=== PATIENT | male | born 1995 | race Caucasian/White ===

== ENCOUNTER 2021-10-25 14:13 | Emergency (ER) | payer BC, SELFPAY ==
--- NOTE | 2021-10-25 14:28 | ED.SKABFB ---
HPI - Skin/Abscess/Foreign Bdy General Chief complaint: Skin/Abscess/Foreign Body Stated complaint: RASH Time Seen by Provider: 10/25/21 14:50 Source: patient Mode of arrival: ambulatory Limitations: no limitations History of Present Illness HPI narrative: Andres is a 25-year-old male patient presenting to the clinic today with complaints of a rash on his abdominal wall and to the bilateral arms. He reports he was doing yard work over the weekend and developed this rash. He denies any exposure to any poison [place] however he thinks these may be bug bites. He reports that they are itching and seem to be spreading. He denies any shortness of breath chest pain or difficulties with Related Data Allergies Allergy/AdvReac Type Severity Reaction Status Date / Time No Known Allergies Allergy Verified 10/25/21 14:45 Review of Systems Review of Systems: Pertinent positives per HPI. Patient denies any fever, chills, headache, visual changes, dizziness, cough, runny nose, sore throat, shortness of breath, chest pain, palpitations, nausea, vomiting, diarrhea, constipation, abdominal pain, or any urinary issues. [facility] Family History Family History Father Hypertension Mother Hypertension Sibling Patient's sister is in good health Social History Social History Smoking status: Never smoker Second hand tobacco smoke exposure: No Alcohol intake: current Comments At the time of my signature, I reviewed and agree with the nursing past medical, surgical, social, and family history. There is no relevant family history pertinent to the patient complaint. Exam Narrative: General: Well-developed, well nourished, in no apparent distress Head: Normocephalic, atraumatic. Cardio: Regular rate and rhythm, s1 and s2 normal, no murmur appreciated. Resp: Clear to auscultation bilaterally, no rhonchi, rales, wheezing or rubs. Integumentary: [place], warm, and dry, intact without lesion, red, raised, itchy papular rash that appears to be from insect bites across the lower abdominal wall and to the bilateral arms Course Course Emergency Course: Portions of this record may have been created with voice recognition software. Level of Care: Express Care Visit Vital Signs Vital signs: Vital Signs Temperature 37.1 C 10/25/21 14:42 Pulse Rate 52 L 10/25/21 14:42 Respiratory Rate 16 10/25/21 14:42 Blood Pressure 128/64 10/25/21 14:42 Pulse Oximetry 100 10/25/21 14:42 Oxygen Delivery Room Air 10/25/21 14:42 Temperature 37.1 C 10/25/21 14:42 Pulse Rate 52 L 10/25/21 14:42 Respiratory Rate 16 10/25/21 14:42 Blood Pressure 128/64 10/25/21 14:42 Pulse Oximetry 100 10/25/21 14:42 Oxygen Delivery Room Air 10/25/21 14:42 Vital signs reviewed MDM - Skin/Abscess/Foreign Bdy MDM Narrative Medical decision making narrative: At the time of visit patient is resting comfortably on the exam table. I suspect the heads possibly chigger bites to his abdomen and arms. I will go ahead and place him on a prescription for some prednisone and order some triamcinolone cream for him. Supportive measures were discussed with the patient he voiced understanding of discharge instructions and agrees to treatment plan Differential Diagnosis Differential diagnosis: Likely abscess of skin or subcutaneous tissue, urticaria, allergic reaction to drug, cellulitis, insect bites and contact dermatitis Discharge Plan Discharge Clinical Impression: Insect bite Patient Disposition: Home, Self-Care Condition: Stable Instructions: Antibiotic Form, Insect Bite or Sting (ED), General Allergic Reaction (ED) Additional Instructions: Take prednisone 40 mg daily as directed Apply triamcinolone cream to the affected areas as directed Increase fluids and stay well-hydrated May take Benadryl 25 to 50 mg ev
[2021-10-25 14:42] VITALS: BP 128/64; PULSE 52; RESP 16; TEMP 37.1; O2SAT 100
== END 2021-10-25 14:54 | disposition home or self-care (01) ==
PROVIDERS: Emergency Provider Nurse Practitioner Family; PCP Physician Assistant
DX: S30.861A Insect bite (nonvenomous) of abdominal wall, initial encounter (principal); S40.862A Insect bite (nonvenomous) of left upper arm, initial encounter; S40.861A Insect bite (nonvenomous) of right upper arm, initial encounter; W57.XXXA Bitten or stung by nonvenomous insect and other nonvenomous arthropods, initial encounter
CPT/HCPCS: 99213; G0463